=== PATIENT | female | born 1985 | race Caucasian/White ===

== ENCOUNTER 2018-10-07 07:13 | Inpatient (IN) | payer OTHER ==
[2018-10-07] VITALS (28 sets, daily range): BP systolic 129–167; BP diastolic 68–96; PULSE 77–107; TEMP 98.3–98.9
[~2018-10-07] VITALS: Ht 154.9 cm; Wt 83.6 kg
[2018-10-07] MEDS ORDERED: PRENATAL VITAMI1 TA3 PO (07:26)
[2018-10-07 08:42] LABS: BASO % 0.3 % (0.0-2.0); EOS % 0.6 % (0-4.0); GRAN % 68.9 % (42.2-75.2); HEMOGLOBIN 11.2 g/dl (12.5-16.0); LYMPH # 1.5 (1.2-3.4); LYMPH % 20.6 % (20.0-51.0); MEAN CELL VOLUME 84 fl (80.0-100.0); MEAN CORPUSCULAR HEMOGLOBIN 28 pg (27.0-31.0); MEAN CORPUSCULAR HGB CONC 33 g/dl (33.0-37.0); MEAN PLATELET VOLUME 10.9 fl (7.4-10.4); MONO # 0.7 (0.1-0.6); PLATELET COUNT 192 K/mm3 (130-400); REDCELL DISTRIBUTION WIDTH-CV 15.3 % (11.5-14.5)
[2018-10-07 08:45] LABS: HEMATOCRIT 33.6 % (37.0-47.0)
[2018-10-07 09:03] LABS: COLLECTION METHOD CLEAN CATCH
[2018-10-07 09:11] LABS: PH 8 (5-8); URINE APPEARANCE Hazy; URINE BACTERIA Rare /hpf; URINE BILIRUBIN Negative (NEGATIVE); URINE BLOOD 3+ (NEGATIVE); URINE COLOR Yellow; URINE GLUCOSE Negative (NEGATIVE); URINE KETONE Negative (NEGATIVE); URINE LEUKOCYTE ESTERASE 2+ (NEGATIVE); URINE NITRATE Negative (NEGATIVE); URINE PROTEIN(semi-quant) Negative (NEGATIVE); URINE RBC 0-2 /hpf; URINE UROBILINOGEN Negative (NEGATIVE); URINE WBC 20-50 /hpf
[2018-10-07 09:16] LABS: ALBUMIN 3.7 gm/dL (3.5-5.0); BILIRUBIN,TOTAL 0.5 mg/dL (0.0-1.0); CALCIUM 9.3 mg/dL (8.4-10.2); CREATININE, serum 0.61 (0.52-1.25); POTASSIUM 4.1 mmol/L (3.4-5.0); TOTAL PROTEIN 7.8 gm/dL (6.4-8.2)
[2018-10-08 08:45] VITALS: BP 140/86; PULSE 84; TEMP 98.3
[2018-10-08 16:00] VITALS: BP 148/90; PULSE 89; TEMP 98.1
== END 2018-10-08 16:10 | disposition home or self-care (01) | DRG 807 ==
LOC: LDR 07:13 → OB 14:30
PROVIDERS: ADMIT Student in an Organized Health Care Education/Training Program
PROC: 10E0XZZ Delivery of Products of Conception, External Approach (ICD-10-PCS; principal; 2018-10-07)
PROC: 10907ZC Drainage of Amniotic Fluid, Therapeutic from Products of Conception, Via Natural or Artificial Opening (ICD-10-PCS; 2018-10-07)
PROC: 3E033VJ Introduction of Other Hormone into Peripheral Vein, Percutaneous Approach (ICD-10-PCS; 2018-10-07)
DX: O48.0 Post-term pregnancy (principal); Z37.0 Single live birth; O99.02 Anemia complicating childbirth; D64.9 Anemia, unspecified; O99.344 Other mental disorders complicating childbirth; F41.9 Anxiety disorder, unspecified; O99.62 Diseases of the digestive system complicating childbirth; K21.9 Gastro-esophageal reflux disease without esophagitis; Z3A.41 41 weeks gestation of pregnancy
CPT/HCPCS: J2590; J2795; J7120

== ENCOUNTER → 2018-11-21 | Outpatient (CLI) | payer OTHER ==
[~2018-11-21] MED LIST: PRENATAL VITAMI1 TA3 PO
== END ==
LOC: COL.RAD 13:58
DX: K80.20 Calculus of gallbladder without cholecystitis without obstruction (principal)

== ENCOUNTER 2018-12-05 19:39 | Inpatient (IN) | payer OTHER ==
[~2018-12-05] VITALS: Ht 152.4 cm; Wt 77.6 kg
[2018-12-05] MEDS ORDERED: MOTRIN 200200 MG/TAB PO (21:15)
[2018-12-05 21:21] VITALS: BP 128/92; PULSE 111; TEMP 98.9
--- NOTE | 2018-12-05 21:30 | NUR ---
Report recevied from Aaliyah ALEJANDRO from [facility] at 1999. Pt arrived via private vehicle from [facility] at 2100. Pt alert and oriented. Family at bedside. No distress noted. Respirations even and unlabored. Lungs clear. Abdomen soft, nontender. BS+. Pt denies pain. RFA INT started at [facility]- 20g. Flushes well. No signs of infiltration. No needs noted. Will continue to monitor.
--- NOTE | 2018-12-05 21:52 | NUR ---
Dr. Cárdenas called to get orders for patient. He stated he would come see her.
--- NOTE | 2018-12-05 22:05 | NUR ---
Dr Cárdenas at bedside.
[2018-12-05 23:24] VITALS: BP 118/62; PULSE 90; TEMP 97.8
[2018-12-06] VITALS (12 sets, daily range): BP systolic 108–135; BP diastolic 59–81; PULSE 57–94; TEMP 97.2–98.4
--- NOTE | 2018-12-06 06:02 | NUR ---
Pt sleeping this AM. Family at bedside. No distress noted. Pt has denied pain since admission. VSS.
[2018-12-06 06:57] LABS: HEMATOCRIT 38.1 % (37.0-47.0); HEMOGLOBIN 12.1 g/dl (12.5-16.0); MEAN CELL VOLUME 86 fl (80.0-100.0); MEAN CORPUSCULAR HEMOGLOBIN 27 pg (27.0-31.0); MEAN CORPUSCULAR HGB CONC 32 g/dl (33.0-37.0); PLATELET COUNT 208 K/mm3 (130-400); RED BLOOD COUNT 4.45 M/mm3 (4.10-5.30); REDCELL DISTRIBUTION WIDTH-CV 14.3 % (11.5-14.5)
[2018-12-06 06:59] LABS: ALBUMIN 4.2 gm/dL (3.5-5.0); BILIRUBIN,TOTAL 1.5 mg/dL (0.0-1.0); CALCIUM 8.8 mg/dL (8.4-10.2); CREATININE, serum 0.7 (0.52-1.25); POTASSIUM 3.9 mmol/L (3.4-5.0); TOTAL PROTEIN 8.3 gm/dL (6.4-8.2)
--- NOTE | 2018-12-06 11:10 | NUR ---
Patients was present and declined the visit.
--- NOTE | 2018-12-06 11:30 | NUR ---
Patient is going down for surgery at this time. Consent signed and on the chart. Her is following her down. No other changes at this time.
--- NOTE | 2018-12-06 18:30 | NUR ---
Patient did well this afternoon since surgery. She is tolerating clear liquid well. She know she can not eat or drink after midnight. She has been up walking in the room. Her took their baby home. Patient nausea. She stated having a dull ache to her RUQ but otherwise denies pain. Have not wanted anything for pain. No other changes at this time. Call light within reach.
[2018-12-07] VITALS (13 sets, daily range): BP systolic 111–147; BP diastolic 68–91; PULSE 52–71; TEMP 97.6–98.1
--- NOTE | 2018-12-07 06:18 | NUR ---
PT IN BED. UP INDEPENDENTLY. NO c/o PAIN.
--- NOTE | 2018-12-07 11:34 | NUR ---
Patient lives at home with her (Mark [phone]) and her six children in [place], [place] and she plans to return home upon discharge. Patient is independent with daily living activities, no durable medical equipment usage or needs, her primary care physician is Dr. Nancy Quigley, her pharmacy is [facility], and she does not have advance directives of healthcare completed at this time. access services assistant will follow as needed and no further needs at this time.
--- NOTE | 2018-12-07 14:10 | NUR ---
Patient returned from PACU via bed. Patient is alert and oriented, answers questions appropriately. Patient arrives to floor with an IV fluid bolus in progress. Post op checks initiated. Patient denies pain or nausea, call light within reach.
--- NOTE | 2018-12-07 18:36 | NUR ---
Discharge teaching completed, Process of making follow up appointment and filling pain medication script discussed. Reasons to seek care/complications discussed. Patient denies questions or needs. Order recieved for [place] home pack, medication given to patient. No further needs.
--- NOTE | 2018-12-07 19:20 | NUR ---
PT'S IV's DISCONTINUED. PT HAS DISCHARGE PAPERWORK. HERE TO TAKE HER HOME. PT ESCORTED FROM FACILITY BY RN VIA WHEELCHAIR.
== END 2018-12-07 19:20 | disposition home or self-care (01) | DRG 419 ==
LOC: SURG 19:39
PROVIDERS: ADMIT Surgery
PROC: BF10YZZ Fluoroscopy of Bile Ducts using Other Contrast (ICD-10-PCS; 2018-12-06)
PROC: 0FT44ZZ Resection of Gallbladder, Percutaneous Endoscopic Approach (ICD-10-PCS; principal; 2018-12-06 10:00)
PROC: 0FC98ZZ Extirpation of Matter from Common Bile Duct, Via Natural or Artificial Opening Endoscopic (ICD-10-PCS; 2018-12-07)
PROC: BF10YZZ Fluoroscopy of Bile Ducts using Other Contrast (ICD-10-PCS; 2018-12-07)
DX: K80.43 Calculus of bile duct with acute cholecystitis with obstruction (principal)
CPT/HCPCS: A4216; C1769; J0690; J0696; J1100; J1885; J2250; J2405; J2704; J3010

== ENCOUNTER 2020-03-27 08:20 | Day surgery (SDC) | payer OTHER ==
[~2020-03-27] VITALS: Ht 152.4 cm; Wt 80.0 kg
[~2020-03-27 08:20] MED LIST changes: +MOTRIN 200200 MG/TAB PO
[2020-03-27 09:00] LABS: BASO % 0.4 % (0.0-2.0); EOS # 0.1 (0.0-0.7); EOS % 0.7 % (0-4.0); GRAN # 8.7 (1.4-6.5); GRAN % 78.4 % (42.2-75.2); HEMOGLOBIN 11.6 g/dl (12.5-16.0); LYMPH # 1.7 (1.2-3.4); LYMPH % 15.2 % (20.0-51.0); MEAN CELL VOLUME 84 fl (80.0-100.0); MEAN CORPUSCULAR HEMOGLOBIN 27 pg (27.0-31.0); MEAN CORPUSCULAR HGB CONC 32 g/dl (33.0-37.0); MEAN PLATELET VOLUME 10.4 fl (7.4-10.4); MONO # 0.6 (0.1-0.6); MONO % 4.9 % (1.7-9.3); PLATELET COUNT 238 K/mm3 (130-400); RED BLOOD COUNT 4.27 M/mm3 (4.10-5.30); REDCELL DISTRIBUTION WIDTH-CV 14.5 % (11.5-14.5)
[2020-03-27 09:08] LABS: INR 1.1 (0.8-3.0); PROTHROMBIN TIME 11.8 SECONDS (9.7-12.8)
[2020-03-27 09:11] LABS: PARTIAL THROMBOPLASTIN TIME 27.5 SECONDS (26.0-37.0)
[2020-03-27 09:16] LABS: CALCIUM 8.9 mg/dL (8.4-10.2); CREATININE, serum 0.79 (0.52-1.25)
--- NOTE | 2020-03-27 12:30 | NUR ---
Patient admitted to room 222 from ER and prepped for D&C procedure. Consents previously signed in ER with physician, patient denies questions. 1240- NS infusing per order. Gris Dukes CRNA at bedside to discuss anesthesia care. See intraoperative report. 1326- Patient transferred back to 222 by this RN and Gris Dukes CRNA. Patient alert and oriented, denies pain or nausea. VS obtained. Report from Gris Dukes CRNA. Postop monitoring per protocol.
[2020-03-27 13:26] VITALS: BP 128/59; PULSE 90; TEMP 98.3
[2020-03-27] MEDS ORDERED: IBU800 M1 PO (13:29)
[2020-03-27] MEDS ORDERED: METHERGINE0.2 MG/TAB PO (13:31)
[2020-03-27] MEDS ORDERED: DOXYCYCLINE 10100 MG PO (13:31)
[2020-03-27 13:40] VITALS: BP 129/79; PULSE 94
[2020-03-27 13:55] VITALS: BP 114/71; PULSE 100
[2020-03-27 14:10] VITALS: BP 125/70; PULSE 77
[2020-03-27 14:25] VITALS: BP 130/68; PULSE 71
[2020-03-27 14:53] VITALS: BP 125/77; PULSE 84; TEMP 98.4
== END 2020-03-27 15:10 | disposition home or self-care (01) ==
LOC: COL.ER 08:20 → SDCO 11:23
PROVIDERS: Emergency Medicine
DX: O02.1 Missed abortion (principal); I10 Essential (primary) hypertension; D64.9 Anemia, unspecified
CPT/HCPCS: J2210; J2405; J2704; J3010; J7030